=== PATIENT | male | born 1960 | race Caucasian/White ===

== ENCOUNTER 2016-11-08 11:12 | Day surgery (SDC) | payer OTHER ==
[~2016-11-08] VITALS: Ht 170.2 cm; Wt 86.2 kg
[~2016-11-08 11:12] MED LIST: CALC200T6 PO; CHOL500051 PO; GLUC-120 PO; LEVO500T16 PO; METR500T PO; Sodium Chloride LOK Flush 10 mL Syringe IVFLUSH SCH; WHEA144P PO; fentaNYL-PF 50 mCg/mL 2 mL Inj IVPUSH PRN
[2016-11-08 11:23] VITALS: BP 137/84; PULSE 75; RESP 14; O2SAT 97
[2016-11-08 12:42] VITALS: BP 130/92; PULSE 72; RESP 14; O2SAT 94
[2016-11-08 12:45] VITALS: BP 122/88; PULSE 68; RESP 14; O2SAT 95
[2016-11-08 12:57] VITALS: BP 135/89; PULSE 72; RESP 14; O2SAT 96
--- NOTE | 2016-11-08 15:56 | ENDO ---
[address] [address] ENDOSCOPY PROCEDURE PATIENT: KIRA GILLIS : 1960 MR#: [id number] ADMIT: 11/08/2016 JOB ID: [id number] PRIMARY CARE PHYSICIANS: Jamie Wei PA-C PROCEDURE: Screening colonoscopy. INDICATION: The patient is a 56-year-old man whose last colonoscopy was 10-12 years ago. He had a recent episode of diverticulitis. This is a followup screening colonoscopy. EQUIPMENT: [id number]. SEDATION: Versed 4 mg and fentanyl 5 100 mcg. PREPARATION QUALITY: Fair. COMPLICATIONS: None identified. PROCEDURE INFORMATION: The patient was brought into the endoscopy suite and placed in left lateral decubitus position. Sedation was achieved using the above-stated medication with the addition of oxygen administered via nasal cannula. Digital rectal exam was performed and unremarkable. The scope was then introduced through the anus and advanced under direct visualization through to the cecum. The appendiceal orifice was identified and photographed. The ileocecal valve was also identified and photographed. The ileocecal valve was intubated and the terminal ileum photographed. The quality of the prep was fair. The scope was then slowly withdrawn, carefully examining the mucosa for any defects or polyps. There were dense diverticula throughout the descending and sigmoid colon. In the rectum, retroflexed views were obtained and unremarkable. FINDINGS: Diverticulosis of the sigmoid and the descending colon. RECOMMENDATION: Repeat screening colonoscopy in 10 years.
== END 2016-11-08 23:59 | disposition home or self-care (01) ==
LOC: END 11:12
PROVIDERS: ATTEND General Practice
DX: Z12.11 Encounter for screening for malignant neoplasm of colon (principal); K57.32 Diverticulitis of large intestine without perforation or abscess without bleeding
CPT/HCPCS: 99153; G0121; G0500; J2250; J7030